=== PATIENT | male | born 1990 | race Caucasian/White ===

== ENCOUNTER 2019-10-01 09:43 | Emergency (ER) | payer OTHER ==
[~2019-10-01] VITALS: Ht 167.6 cm; Wt 72.7 kg
[2019-10-01] MEDS ORDERED: BOOSTRIX/ADACEL VACCINE (DIPHTH/PERTUSS/ACELL/TETANUS) 0.5ML SYR IM ONE (10:00)
[2019-10-01] MEDS ORDERED: MORPHINE 2 MG/ML 1ML VIAL (J2270) IV PRN (10:00)
[2019-10-01] MEDS ORDERED: ONDANSETRON 4MG/2ML VIAL IV ONE (10:00)
[2019-10-01] MEDS ORDERED: NS 1,000 ML IV ONE (10:00)
[2019-10-01 10:03] VITALS: BP 123/80
[2019-10-01] MEDS ORDERED: ISOVUE-370 76% 100ML VIAL As Ordered ONE (10:29)
[2019-10-01 10:55] LABS: ALBUMIN 4.3 GM/DL (3.2-5.2); BILIRUBIN,DIRECT 0.4 MG/DL (0.0-0.2); BILIRUBIN,TOTAL 1.8 MG/DL (0.2-1.0); INR 1.04; PROTHROMBIN TIME 13.3 SECONDS (11.8-14.0); TOTAL PROTEIN 7.9 GM/DL (6.4-8.2)
[2019-10-01 10:56] LABS: PARTIAL THROMBOPLASTIN TIME 24.1 SECONDS (25.0-38.4)
[2019-10-01 10:58] LABS: BASO # 0.1 10^3/uL (0.0-0.2); BASO % 0.4 % (0.0-1.0); EOS # 0.1 10^3/uL (0.0-0.5); EOS % 0.2 % (0.0-3.0); HEMATOCRIT 50.7 % (42.0-52.0); HEMOGLOBIN 17.3 g/dl (13.5-17.5); LYMPH # 0.9 10^3/uL (1.5-5.0); LYMPH % 4.1 % (24.0-44.0); MEAN CORPUSCULAR HEMOGLOBIN 30.7 pg (27.0-33.0); MEAN CORPUSCULAR HGB CONC 34.1 g/dl (32.0-36.5); MEAN CORPUSCULAR VOLUME 90.1 fl (80.0-96.0); MONO # 1.6 10^3/uL (0.0-0.8); MONO % 7.2 % (0.0-5.0); NEUTROPHILS # 18.9 10^3/uL (1.5-8.5); NEUTROPHILS % 86.9 % (36.0-66.0); PLATELET COUNT, AUTOMATED 391 10^3/uL (150-450); RED BLOOD COUNT 5.63 10^6/uL (4.30-6.10); WHITE BLOOD COUNT 21.8 10^3/uL (4.0-10.0)
--- NOTE | 2019-10-01 11:00 | REP ---
Clinical: Trauma . Comparison: None. Technique: Axial noncontrast images from the skull base to the vertex with coronal re-formations. Findings: The ventricles, sulci, and cisterns are normal in position and appearance. Dillon-white differentiation is maintained. No acute intracranial hemorrhage, mass/mass effect, pathology or trauma/injury. No evidence for acute infarction. No extra-axial fluid collection. Calvarium is intact. Paranasal sinuses and mastoid air cells are clear. Impression: Normal noncontrast head CT. No evidence for acute intracranial pathology or trauma/injury. Electronically Signed by Joselito Houston MD 10/01/2019 10:51 A
--- NOTE | 2019-10-01 11:03 | REP ---
Clinical: Trauma . Technique: Axial noncontrast images from the skull base to the thoracic inlet with coronal and sagittal re-formations Findings: Normal alignment is maintained. Cervical vertebral bodies including transverse processes and spinous processes are intact and there is no evidence for acute fracture / compression injury or subluxation. Spinal canal is patent. Posterior elements are intact. Paravertebral soft tissues are normal. Impression: Normal noncontrast cervical spine CT. No evidence for acute pathology or trauma/injury. Electronically Signed by Joselito Houston MD 10/01/2019 10:55 A
--- NOTE | 2019-10-01 11:08 | REP ---
Clinical: Trauma. Technique: Axial noncontrast images through the facial bones to include the mandible with coronal and sagittal re-formations. Findings: The osseous structures are intact and there is no evidence for fracture or dislocation although a very subtle nondisplaced nasal bone fracture cannot be excluded based on sagittal re-formations. Temporomandibular joints and mandible are normal. The sinuses and mastoid air cells are all well aerated and without fluid level to suggest occult trauma. The bilateral orbits including the globes and intraconal contents appear symmetric and normal. The surrounding soft tissues are grossly unremarkable. Impression: No definite acute injury is appreciated. However, an extremely subtle nondisplaced nasal bone fracture based on sagittal radiographs cannot definitively be excluded. Electronically Signed by Joselito Houston MD 10/01/2019 11:00 A
[2019-10-01] MEDS ORDERED: DERMABOND TOPICAL SKIN ADHESIVE TOP ONE (11:15)
--- NOTE | 2019-10-01 11:15 | REP ---
Clinical: Trauma. Technique: Axial contrast enhanced images from the thoracic inlet to the upper abdomen with coronal and sagittal re-formations using 100 ml Isovue 370 intravenous contrast material. Examination followed by CT of the abdomen and pelvis. Findings: The bilateral lung vee are well-aerated and clear. No consolidation/contusion, pleural effusion, or pneumothorax is appreciated. The tracheobronchial tree is patent. The mediastinum is normal and without evidence for injury. Normal thoracic aorta, pulmonary vasculature and heart/pericardium are identified. No adenopathy. The left mid clavicular shaft fracture is appreciated along with nondisplaced fracture of the seventh rib. Impression: 1. Left clavicular shaft fracture. 2. Nondisplaced fracture through the lateral aspect of the left seventh rib. 3. No acute mediastinal or pleuroparenchymal process. Electronically Signed by Joselito Houston MD 10/01/2019 11:07 A
--- NOTE | 2019-10-01 11:17 | REP ---
Clinical: Trauma. Technique: Axial contrast enhanced images from the lung bases to the pubic symphysis using 100 ml Isovue 370 intravenous contrast material with coronal and sagittal re-formations. Findings: There is no evidence for solid organ injury. Liver, spleen, pancreas, gallbladder, bilateral adrenal glands and kidneys are normal. The enteric system is without obstruction or acute inflammatory process. Abdominal aorta and vasculature appears normal and without evidence for vascular injury. Pelvis demonstrates normal bladder and age appropriate prostate/seminal vesicles. No ascites. No free air. No adenopathy. Musculoskeletal structures of the abdomen and pelvis are intact and without injury. Impression: 1. No acute abdominopelvic pathology or trauma/injury. Electronically Signed by Joselito Houston MD 10/01/2019 11:08 A
--- NOTE | 2019-10-01 11:27 | REP ---
Clinical: Trauma . Comparison: None . Findings: The mediastinum and cardiac silhouette are stable and within normal limits for portable technique. The lung vee are clear without acute consolidation, effusion, or pneumothorax. Left mid clavicular shaft fracture. Impression: No acute cardiopulmonary process appreciated. Left clavicular shaft fracture. Electronically Signed by Joselito Houston MD 10/01/2019 11:18 A
--- NOTE | 2019-10-01 11:28 | REP ---
Clinical: Trauma. Technique: Three views of the left shoulder. Findings: Mid clavicular shaft fracture with foreshortening noted. The acromioclavicular, sternoclavicular, and glenohumeral joints appear intact and normal. Remainder examination is unremarkable. Impression: Mid clavicular shaft fracture. Electronically Signed by Joselito Houston MD 10/01/2019 11:20 A
[2019-10-01 13:02] LABS: BASO % 0.2 % (0.0-1.0); HEMATOCRIT 47.3 % (42.0-52.0); HEMOGLOBIN 16.2 g/dl (13.5-17.5); LYMPH # 0.6 10^3/uL (1.5-5.0); MEAN CORPUSCULAR HEMOGLOBIN 30.7 pg (27.0-33.0); MEAN CORPUSCULAR HGB CONC 34.2 g/dl (32.0-36.5); MEAN CORPUSCULAR VOLUME 89.6 fl (80.0-96.0); MONO # 1.7 10^3/uL (0.0-0.8); MONO % 8.5 % (0.0-5.0); NEUTROPHILS # 17.4 10^3/uL (1.5-8.5); NEUTROPHILS % 87.7 % (36.0-66.0); PLATELET COUNT, AUTOMATED 331 10^3/uL (150-450); RED BLOOD COUNT 5.28 10^6/uL (4.30-6.10); WHITE BLOOD COUNT 19.8 10^3/uL (4.0-10.0)
== END 2019-10-01 14:34 | disposition home or self-care (01) ==
LOC: EDBD 09:43 → M ED 09:43
DX: S42.022A Displaced fracture of shaft of left clavicle, initial encounter for closed fracture (principal); S22.32XA Fracture of one rib, left side, initial encounter for closed fracture; S09.90XA Unspecified injury of head, initial encounter; S01.21XA Laceration without foreign body of nose, initial encounter; Y04.8XXA Assault by other bodily force, initial encounter; Y92.149 Unspecified place in prison as the place of occurrence of the external cause; D72.829 Elevated white blood cell count, unspecified; Z88.0 Allergy status to penicillin; Z79.899 Other long term (current) drug therapy
CPT/HCPCS: 36415; 70450; 70486; 71045; 71260; 72125; 73030; 74177; 80047; 80076; 81001; 82150; 83690; 85025; 85610; 85730; 86850; 86900; 86901; 87040; 90471; 90715; 93041; 94760; 96361; 96374; 96375; 99284; J2270; J2405; Q9967

== ENCOUNTER → 2019-10-16 | Outpatient (CLI) | payer OTHER ==
--- NOTE | 2019-10-16 11:34 | REP ---
LEFT CLAVICLE: TWO VIEWS. HISTORY: Check clavicle fracture. Comparison study: October 01, 2019 FINDINGS: There is a midshaft fracture of the left clavicle with improved alignment on today's radiographs. The override is no longer visible. There is only a 3 mm of superior displacement of the distal fragment. The AC and glenohumeral joints are normally aligned. IMPRESSION: Left mid shaft fracture in good alignment, improved from October 01, 2019 prior study. Electronically Signed by Adrian Lennon MD 10/16/2019 04:53 P
== END ==
LOC: M RAD 08:41
PROVIDERS: ATTEND Surgery
DX: S42.022D Displaced fracture of shaft of left clavicle, subsequent encounter for fracture with routine healing (principal); X58.XXXD Exposure to other specified factors, subsequent encounter; Y92.89 Other specified places as the place of occurrence of the external cause